=== PATIENT | female | born 1955 | race Caucasian/White ===

== ENCOUNTER 2021-09-18 08:10 | Day surgery (SDC) | payer MEDICARE, OTHER ==
[2021-09-18] MEDS ORDERED: Sodium Chloride 0.9% 1,000 ML IV SCH (08:45)
[2021-09-18] MEDS ORDERED: fentaNYL 100 MCG/2 ML SDV ONE (08:57)
[2021-09-18] MEDS ORDERED: Midazolam 1 MG/ML 2 ML SDV ONE (08:57)
[2021-09-18] MEDS ORDERED: Propofol 200 MG/20 ML SDV ONE (08:57)
== END 2021-09-18 11:00 | disposition home or self-care (01) ==
LOC: JP.SDS 08:10
PROVIDERS: ATTEND Surgery
DX: Z12.11 Encounter for screening for malignant neoplasm of colon (principal); E03.9 Hypothyroidism, unspecified; Z91.040 Latex allergy status; Z88.5 Allergy status to narcotic agent
CPT/HCPCS: J2250; J2704; J3010